=== PATIENT | male | born 1960 | race Caucasian/White ===

== ENCOUNTER 2023-12-26 08:38 | Observation (INO) ==
[2023-12-26 10:05] LABS: ABS Basophils 0.1 10^3/uL (0.0-0.1); ABS Eosinophils 0.1 10^3/uL (0.0-0.5); ABS Lymphocytes 1.1 10^3/uL (1.0-4.8); ABS Monocytes 0.9 10^3/uL (0.0-1.1); ABS Neutrophils 13.2 10^3/uL (1.5-7.6); ABS Nucleated RBC 0.03 10^3/ul; Eosinophil % 0.4 %; Hematocrit 44.3 % (38-53); Hemoglobin 15.2 g/dL (13.2-16.3); Mean Corpuscular Hgb Conc 34.4 g/dL (31-36); Mean Corpuscular Volume 84.4 fL (80-97); Mean Platelet Volume 8.4 fL (7.5-11.2); Nucleated Red Blood Cells % 0.2 %/100WBC (0.0-0.8); Platelet Count 176 10^3/uL (150-450); Red Blood Count 5.24 10^6/uL (4.06-5.63); White Blood Count 15.4 10^3/uL (3.6-10.2)
[2023-12-26 10:56] LABS: Albumin 4.2 g/dL (3.2-5.2); Albumin/Globulin Ratio 1.5 (1-3); C Reactive Protein 122.1 mg/L (<8.01); Calcium 8.9 mg/dL (8.6-10.3); Creatinine, Serum 0.97 mg/dL (0.67-1.17); Globulin 2.8 g/dL (2-4); eGFR CKD-EPI 86.6 (>60)
[2023-12-26] MEDS: Iodixanol (CONTRAST) 320 MG/ML 100 ML SDV IV ONE (12:22)
[2023-12-26] MEDS ORDERED: cefTRIAXone 2 GM ADDV.VIAL 2 GM in NS 0.9% 100 ml BAG 100 ML IV ONE (12:25)
[2023-12-26] MEDS: cefTRIAXone 2 gm/50 mL D5W 2 GM/50 ML BAG IV ONE (13:10)
[2023-12-26] MEDS: Lactated Ringers 1000 ml BAG 1,000 ML IV ONE (13:16)
[2023-12-26] MEDS ORDERED: Dextrose 50% Syringe 50 ml 25 GM/50 ML SYRINGE IV PUSH PRN (13:44)
[2023-12-26] MEDS: NS 0.9% 1000 ml BAG 1,000 ML IV SCH (14:13)
[2023-12-26] MEDS: Vancomycin 1,500 MG in NS 0.9% 250 ml 250 ML IVPB ONE (14:27)
[2023-12-26] MEDS ORDERED: Zosyn per Pharmacy NOTE FOLLOW UP SCH (15:00)
[2023-12-26] MEDS ORDERED: Magnesium Hydroxide LIQ 30 ML UDC PO PRN (15:11)
[2023-12-26] MEDS: Insulin GLARGINE 100 un/ml 10 ml VIAL SUBCUT ONE (15:55)
[2023-12-26] MEDS: Piperacillin/Tazobac 3.375 BAG 3.375 GM/100 ML BAG IV ONE (16:48)
[2023-12-26 18:03] LABS: Urine Appearance Clear; Urine Bacteria Absent /HPF (Absent); Urine Bilirubin Negative (Negative); Urine Blood Negative (Negative); Urine Color Light-Yellow; Urine Glucose 4+ (>=1000 mg/dL) (Negative); Urine Ketones 2+ (Negative); Urine Nitrite Negative (Negative); Urine Protein 1+ (>=30 mg/dL) (Negative); Urine Red Blood Cell Trace(0-2/hpf) /HPF (0-Trace); Urine Urobilinogen Negative (Negative); Urine White Blood Cell Trace(0-5/hpf) /HPF (0-Trace); Urine pH 6.5 (5.0-8.0)
[2023-12-26] MEDS ORDERED: Insulin GLARGINE 100 un/ml 10 ml VIAL SUBCUT SCH (21:00)
[2023-12-26] MEDS: Enoxaparin 40 MG/0.4 ML SYR SUBCUT SCH (21:09)
[2023-12-26] MEDS: ZOSYN 3.375 GM Q8H per EXTENDED INFUSION IV SCH (21:09)
[2023-12-27 06:05] LABS: ABS Basophils 0.1 10^3/uL (0.0-0.1); ABS Eosinophils 0.1 10^3/uL (0.0-0.5); ABS Lymphocytes 1.4 10^3/uL (1.0-4.8); ABS Monocytes 1.1 10^3/uL (0.0-1.1); ABS Neutrophils 11.4 10^3/uL (1.5-7.6); ABS Nucleated RBC 0.01 10^3/ul; Eosinophil % 0.5 %; Hematocrit 38.2 % (38-53); Hemoglobin 13.5 g/dL (13.2-16.3); Lymphocyte % 9.7 %; Mean Corpuscular Hemoglobin 29.3 pg (27-33); Mean Corpuscular Hgb Conc 35.3 g/dL (31-36); Mean Corpuscular Volume 83.1 fL (80-97); Mean Platelet Volume 8.2 fL (7.5-11.2); Platelet Count 154 10^3/uL (150-450); Red Blood Count 4.59 10^6/uL (4.06-5.63); Red Cell Distribution Width 12.5 % (12-17)
[2023-12-27 07:04] LABS: Magnesium 1.6 mg/dL (1.9-2.7)
[2023-12-27] MEDS: Polyethylene Glycol 3350 17 GM PACKET PO SCH (07:59)
[2023-12-27] MEDS: Insulin GLARGINE 100 un/ml 10 ml VIAL SUBCUT SCH ×2 (08:00→10:49)
[2023-12-27] MEDS ORDERED: Insulin GLARGINE 100 un/ml 10 ml VIAL SUBCUT SCH (09:00)
[2023-12-27] MEDS: Magnesium Sulf 4 GM/100 ML IV 4,000 MG/100 ML BAG IVPB ONE (09:35)
[2023-12-27] MEDS: Insulin GLARGINE 100 un/ml 10 ml VIAL SUBCUT ONE (16:39)
[2023-12-28 06:38] LABS: ABS Basophils 0.1 10^3/uL (0.0-0.1); ABS Eosinophils 0.2 10^3/uL (0.0-0.5); ABS Lymphocytes 1.2 10^3/uL (1.0-4.8); ABS Monocytes 0.8 10^3/uL (0.0-1.1); ABS Neutrophils 8.8 10^3/uL (1.5-7.6); Eosinophil % 1.5 %; Hematocrit 38.6 % (38-53); Hemoglobin 13.5 g/dL (13.2-16.3); Mean Corpuscular Hemoglobin 29.3 pg (27-33); Mean Corpuscular Hgb Conc 34.8 g/dL (31-36); Mean Platelet Volume 8.7 fL (7.5-11.2); Platelet Count 163 10^3/uL (150-450); Red Cell Distribution Width 12.9 % (12-17); White Blood Count 11.1 10^3/uL (3.6-10.2)
[2023-12-28 06:50] LABS: Calcium 8.1 mg/dL (8.6-10.3); Creatinine, Serum 0.95 mg/dL (0.67-1.17); Magnesium 2.2 mg/dL (1.9-2.7); Potassium 3.7 mmol/L (3.5-5.0); eGFR CKD-EPI 88.8 (>60)
[2023-12-28] MEDS: Insulin GLARGINE 100 un/ml 10 ml VIAL SUBCUT SCH (08:30)
[2023-12-28] MEDS: Potassium Chlor 20 meq TAB.ER PO ONE (08:32)
[2023-12-28] MEDS: Insulin GLARGINE 100 un/ml 10 ml VIAL SUBCUT ONE (10:38)
[2023-12-28 13:25] VITALS: BP 145/65
== END 2023-12-28 15:00 | disposition home or self-care (01) ==
LOC: EDHOLD 08:38 → ED 08:38 → SUATTDRO 13:09 → MED 14:14
PROVIDERS: ADMIT Internal Medicine; ATTEND Student in an Organized Health Care Education/Training Program